=== PATIENT | male | born 1950 | race Caucasian/White ===

== ENCOUNTER 2019-10-08 11:56 | Outpatient (CLI) | payer MEDICARE, SELFPAY ==
--- NOTE | ~2019-10-08 | XR_ITS ---
EXAMINATION: XR wrist RT min 3V DATE: 10/08/2019 12:21 INDICATION: Right wrist osteoarthritis. TECHNIQUE: 3 views of right wrist were obtained. COMPARISON: None. FINDINGS: Bone alignment is normal. No fracture. There is dorsal tilt of lunate, consistent with dors al intercalated segmental instability. There is severe osteoarthritis of radioscaphoid joint and at l east mild osteoarthritis of lunate-capitate joint and lunate-hamate joint. There is mild osteoarthrit is of first carpometacarpal joint. IMPRESSION: 1. Polyarticular osteoarthritis. 2. Dorsal intercalated segmental instability (DISI). Reviewed, dictated and finalized at location A.
== END 2019-10-08 11:57 | disposition home or self-care (01) ==
PROVIDERS: PCP Internal Medicine; Visit Provider Plastic Surgery
DX: M19.031 Primary osteoarthritis, right wrist (principal)
CPT/HCPCS: 73110

== ENCOUNTER → 2021-02-18 11:56 | Outpatient (CLI) | payer MEDICARE, SELFPAY ==
--- NOTE | ~2021-02-18 | US_ITS ---
EXAMINATION: US thyroid DATE: 02/18/2021 12:14 INDICATION: Other specified abnormal findings of blood chemistry. TECHNIQUE: Multiple ultrasound images of the thyroid were obtained. COMPARISON: None. FINDINGS: The right thyroid lobe measures 4.3 x 1.0 x 1.4 cm. The left thyroid lobe measures 3.1 x 1.3 x 1.1 c m. There is normal echotexture and echogenicity throughout the thyroid gland. No discrete nodules id entified. Normal vascular flow is present. IMPRESSION: 1. Normal thyroid. Reviewed, dictated and finalized at location A. IMPRESSION: 1. Normal thyroid.
== END ==
PROVIDERS: PCP Internal Medicine; Visit Provider Internal Medicine
DX: R79.89 Other specified abnormal findings of blood chemistry (principal)
CPT/HCPCS: 76536

== ENCOUNTER 2024-11-28 12:00 | Emergency (ER) | payer MEDICARE, SELFPAY ==
--- NOTE | 2024-11-28 12:01 | ED.URI ---
HPI - URI/Sore Throat General Chief Complaint: Headache Stated Complaint: sinus pain/pressure Time Seen by Provider: 11/28/24 12:01 Source: patient Mode of arrival: ambulatory Limitations: no limitations History of Present Illness HPI Narrative: Rufino is a 74-year-old male patient presenting to the clinic today with complaints of sinus headache x2 days. reports started having some confusion this morning around 10am. He keeps asking the same question multiple times, and is unsteady of his feet. Not acting like himself. Has taken sinus cold medication for his symptoms and some extra strength tylenol. Temp of 37.8C in the clinic. Pain aching- 7/10 currently. Denies any known fever, chills, or body aches. Feels as though he is unsteady of his feet with walking- room is not spinning. No falls. says he is never sick. Related Data Home Medications ?Medication ?Instructions ?Recorded ?Confirmed ?Last Taken ?Type omega 6-tqb-gfw-fish oil 60 mg-90 1 cap PO DAILY 02/20/24 02/20/24 Unknown History mg-500 mg capsule (Fish Oil) Allergies Allergy/AdvReac Type Severity Reaction Status Date / Time No Known Allergies Allergy Verified 11/28/24 12:50 Review of Systems Review of Systems: Pertinent positives per HPI. Patient denies any fever, chills, rash, visual changes, dizziness, cough, shortness of breath, chest pain, palpitations, nausea, vomiting, diarrhea, constipation, abdominal pain, or any urinary issues. [facility] History Surgical History History of shoulder surgery Social History Social History Smoking status: Never smoker Alcohol intake: current Substance use: never Do You Feel Safe in your Home?: Yes Lack of Transportation: No Lack of Food: Never True Current Housing: I Have Housing Concerned About Future Housing: No Difficulty Paying Gas/Electric Bills: No Difficulty Paying for Meds: No Currently Unemployed: No Comments At the time of my signature, I reviewed and agree with the nursing past medical, surgical, social, and family history. There is no relevant family history pertinent to the patient complaint. Exam Narrative: General: Well-developed, well nourished, in no apparent distress Head: Normocephalic, atraumatic Eyes: Pupils equally round and reactive to light bilaterally, EOM intact, sclera and conjunctive clear, no discharge, lids normal Ears: TMs intact and clear, ear canals clear, no drainage, grossly hearing normal. Nose: Nares patent, no discharge, no inflammation, no sinus tenderness. Mouth: Oropharynx without lesions or masses, good dentition, MM dry. Tongue midline, even rise and fall of uvula Neck: Supple, trachea midline, no enlargement of anterior or posterior cervical nodes, no thyroid masses or goiter palpable. Cardio: Regular rate and rhythm, s1 and s2 normal, no murmur appreciated. Resp: Clear to auscultation bilaterally anteriorly and posteriorly, no rhonchi, rales, wheezing or rubs Musculoskeletal: No deformity, non-tender to palpation, grossly normal range of motion, muscle strength strong and equal, peripheral pulse strong, no edema, no cyanosis, unsteady gait with walking Neuro: Alert and oriented x2 with normal speech, no focal deficits, cranial nerves I through XII intact, muscle strength 5 out of 5, sensation intact bilaterally Course Course Emergency Course: Portions of this record may have been created with voice recognition software. Level of Care: Express Care Visit Vital Signs Vital signs: Vital Signs Temperature 37.8 C H 11/28/24 12:06 Pulse Rate 81 11/28/24 12:06 Respiratory Rate 24 H 11/28/24 12:06 Blood Pressure 146/87 H 11/28/24 12:06 Pulse Oximetry 96 11/28/24 12:06 Oxygen Delivery Room Air 11/28/24 12:06 Temperature 37.8 C H 11/28/24 12:06 Pulse Rate 81 11/28/24 12:06 Respiratory Rate 24 H 11/28/24 12:06 Blood Pressure 146/87 H 11/28/24 12:06 Pulse Oximetry 96 11/28/24 12:06 Oxygen Delivery Room Air 11/28/24 12:06 Vital signs reviewed Transfer Transfered to: Tra Transportation: Other (Private car) Transfer rationale: headache, unsteady gait, confusion Accepting physician: Dr. Haines Transfer comments: private car MDM - URI/Sore Throat MDM Narrative Medical decision making narrative: At the time of visit patient is resting comfortably on the exam table. Patient appears to be nontoxic. Patient had sudden onset frontal headache 2 days ago with developing confusion and unsteady gait today. Patient reports that he is normally outside but has not really been outside this week in the heat. Patient is alert and oriented x2 at this time. at bedside. States that this is not normal the patient-unsteady gait, confusion, and even having headache. States he has never sick. Urinalysis and COVID testing was ordered. Labs: COVID testing is negative in the clinic today. Urinalysis shows no sign of infection but does have positive blood, protein, and ketones. Plan: Recommend transfer to the ER for further evaluation as patient is experience headache, confusion, and unsteady gait. This may likely be due to dehydration as the patient does have blood protein and ketones in his urine and his mucous membranes appear to be dry. Patient is alert and oriented x2 and has an unsteady gait. Rates frontal headache 7/10 currently. Neuro exam otherwise is normal. Other differentials include CVA, TIA, brain mass, tension headache, migraine, or sinusitis. Patient and agrees to transfer to the emergency room. They would like to go to [place] [facility]. Report called to Dr. Haines at [place] [facility] and he accepts patient for transfer. Patient to be transferred via private car. Differential Diagnosis Differential diagnosis: Likely sinusitis, viral infection and other (COVID, CVA, TIA, brain mass, tension headache, migraine headache) Lab Data Labs: Lab Results 11/28/24 Range/Units 12:10 POC Urine Color Yellow POC Urine Clarity Clear POC Urine pH 6.0 POC Ur Specif Deshler 1.030 POC Urine Protein 1+ (Negative) POC Ur Glucose (UA) Negative (Negative) POC Urine Ketones 2+ (Negative) POC Urine Blood 1+ (Negative) POC Urine Nitrite Negative (Negative) POC Urine Bilirubin 1+ (Negative) POC Urine Urobilinogen 0.2 POC U Leukocyte Esteras Negative (Negative) POC SARS CoV-2 Ag Negative (Negative) Discharge Plan Discharge Clinical Impression: Acute confusion, Unsteady gait Headache Qualifiers: Headache type: unspecified Headache chronicity pattern: acute headache Intractability: not intractable Qualified Code(s): R51.9 - Headache, unspecified Patient Disposition: Acute Care Hospital Condition: Stable Patient Language: Danish Prescriptions: No Action omega 1-syl-fmu-fish oil [Fish Oil] 60-90-500 mg capsule 1 cap PO DAILY Follow-up/Referrals: Anselmo,MD Kim [Primary Care Provider] - Time of Disposition: 12:45 Quality NIHSS Nursing Documentation ED NIHSS nursing documentation: reviewed/agree
--- OUTSIDE RECORDS SUMMARY | 2024-11-28 12:03 | XMS_ITS ---
Author Organization [facility] Address [address] [place], [place] [id number] Care Team Providers Care Signal Person Name Role Phone LA NENA HOFF Unavailable [phone] Kim Briones Unavailable Unavailable REASON FOR VISIT Patient presents for at-risk foot care . The patient has painful toenails that cause difficulty with ambulation and shoegear. The onset is gradual Encounters Encounter Location Date Provider Diagnosis [facility] [place] [address] [place], [place] [id number] 06/25/2024 LA NENA SAENZ Tinea unguium B35.1 ; Pain in right toe(s) M79.674 ; Pain in left toe(s) M79.675 and Atherosclerosis of [place] arteries of extremities with intermittent claudication, bilateral legs I70.213 Assessments Encounter Date Diagnosis (ICD Code) Assessment Notes Treatment Notes Treatment Clinical Notes Section Notes 06/25/2024 Tinea unguium (ICD-10 - B35.1) FUNGAL TOENAILS: Discussed various treatment options for fungal toenails including debridement, topical antifungals, oral antifungals, toenail avulsion, or toenail matrixectomy. NAIL DEBRIDEMENT: Nails 1-5 Bilateral were debrided extensively with nail nippers and emery board, reducing length and girth to pink healthy tissue with any subungual debris and necrotic tissue removed 06/25/2024 Pain in right toe(s) (ICD-10 - M79.674) 06/25/2024 Pain in left toe(s) (ICD-10 - M79.675) 06/25/2024 Atherosclerosis of [place] arteries of extremities with intermittent claudication, bilateral legs (ICD-10 - I70.213) Plan Of Treatment Treatment Notes Assessment Notes Tinea unguium FUNGAL TOENAILS: Discussed various treatment options for fungal toenails including debridement, topical antifungals, oral antifungals, toenail avulsion, or toenail matrixectomy. NAIL DEBRIDEMENT: Nails 1-5 Bilateral were debrided extensively with nail nippers and emery board, reducing length and girth to pink healthy tissue with any subungual debris and necrotic tissue removed Next Appt Details Follow Up: 10-12 Weeks, Reas on: At Risk Foot care, sooner if problems arise Provider Name:FLORENTINO CORTES, 12/05/2024 03:50:00 PM, [address], [address], [id number], Progress Notes * Rufino WILSONDOB:1950 (74 yo M)Acc No.[id number]:06/25/2024 Patient: Rufino AMBROSE Provider: Len Saenz DPM :1950 A ge:74 Y S ex:Male Date:06/25/2024 Address:[address] [place], [place] [id number] Subjective: * Chief Complaints: * 1 . Patient presents for at-risk foot care . The patient has painful toenails that cause difficulty with ambulation and shoegear. The onset is gradual. * HPI: H PI: General care P atient presents to the office for at risk foot care. Patient states that their nails are thickened, elongated and painful. Patient states that it is aggravated by shoe gear. Onset is gradual. Patient denies being diabetic., Patient denies taking blood thinners., Date last seen by Dr. Briones was 12/2023., Initials mca. sample. * ROS: G eneral / Constitutional: Patient denies c hills, fever, weight loss. ? M usculoskeletal: Patient denies w eakness, broken foot bone. P atient complains of h ammertoes. P eripheral Vascular: Patient denies p ain / cramping in legs after exertion, ulceration of feet. S kin: Patient complains of f ungal nails, nail changes. ? N eurologic: Patient denies b alance difficulty, confusion, difficulty speaking, dizziness. * Medical History: * Medications: N one Objective: * Vitals: * Examination: C onstitutional: Constitutional T he patient is awake, alert, well developed, well groomed and well nourished. D ermatologic: Skin findings: S kin is thin, atrophic and lacking pedal hair. Nail pathology: N ails 1, 2, 3, 4, and 5 bilateral are elongated, thick, discolored, and dystrophic with subungual debris. They are painful to palpation. ? V ascular: Dorsalis pedis pulse: 1 /4 b ilateral. Posterior tibial pulse: 0 /4 b ilateral. Capillary refill: g reater than 3 seconds. Edema: N o edema, bilateral. N eurologic: Gross sensation G ross sensation is intact to light touch.? M usculoskeletal: Muscle Strength M uscle strength is 5/5 in regards to dorsiflexion, plantarflexion, inversion, and eversion in bilateral lower extremities. ? Assessment: * Assessment: 1. T inea unguium - B35.1 (Primary) 2 . P ain in right toe(s) - M79.674? 3. P ain in left toe(s) - M79.675 4 . A therosclerosis of [place] arteries of extremities with intermittent claudication, bilateral legs - I70.213 Plan: * Treatment: * Follow Up: 1 0-12 Weeks (Reason: At Risk Foot care, sooner if problems arise) * Billing Information: * Visit Code: 50015 Office Visit, Est Pt., Level 3. * Procedure Codes: * Electronic signature of LA NENA SAENZ DPM on 11/28/2024 at 12:03 PM CDT Sign off status: Pending * Provider: Len Saenz DPM Date: 0 06/25/2024 Generated for Mayo mandel/Candelaria/Adeel on: 0 11/28/2024 12:03 PM CDT History and Physical Notes * HPI (History of Present Illness) Category Sub-Category Detail Notes Category Not es HPI General care Patient presents to the office for at risk foot care. Patient states that their nails are thickened, elongated and painful. Patient states that it is aggravated by shoe gear. Onset is gradual. Patient denies being diabetic., Patient denies taking blood thinners., Date last seen by Dr. Briones was 12/2023., Initials mca sample Examination Category Sub-Category Detail Notes Category Not es Dermatologic Skin findings: Skin is thin, at rophic and lacking pedal hair Nail pathology: Nails 1, 2, 3, 4, an d 5 bilateral are elongated, thick, discolored, and dystrophic with subungual debris. They are painful to palpation Neurologic Gross sensation Gross sensation is intact to light touch Vascular Dorsalis pedis pulse: 1/4 bilateral Edema: No edema, bilateral Capillary refill: greater than 3 secon ds Posterior tibial pulse: 0/4 bilateral Musculoskeletal Muscle Strength Muscle strength is 5/5 in regards to dorsiflexion, plantarflexion, inversion, and eversion in bilateral lower extremities Constitutional Constitutional The patient is a wake, alert, well developed, well groomed and well nourished
--- OUTSIDE RECORDS SUMMARY | 2024-11-28 12:03 | XMS_ITS | Clinical Summary ---
Author Organization [facility] Address [address] [place] [address] Care Team Providers Care Custom Framing Specialist Name Role Phone Unavailable Primary Care Provider Unavailabl e Source Comments [facility],non-owned Affiliates and Associated Physician Practices is amultiple site organization consisting of ambulatory clinics and hospital sitesin [place], [place], [place] and [place]. This disclosure is being madepursuant to the Care Everywhere program and may not contain all information available regarding this patient. Last updated 18.[facility] [employer] Allergies No known active allergies Social History Tobacco Use Types Packs/Day Years Used Date Smoking Tobacco: Never Assessed Sex and Gender Information Value Date Recorded Sex Assigned at Not on file Legal Sex Male 9:45 AM CDT Gender Identity Not on file Sexual Orientation Not on file Plan of Treatment Health Maintenance Due Date Last Done Comments COLOGUARD (AGES 45-75) - COL ON CA SCREENING 1950 COLON MONITORING 1950 COLONOSCOPY - COLON CA SCREENING 1950 CT COLONOGRAPHY - COLON CA SCREENING 1950 Colorectal Cancer Screening 1950 FIT - COLON CA SCREENING 1950 FLEX SIG - COLON CA SCREENING 1950 LIPID TESTING 1950 HEPATITIS C SCREENING 04/04/1970 DTAP/TDAP/TD VACCINES (1 - Tdap) 1971 PNEUMOCOCCAL VACCINE 50+ (1 of 1 - PCV) 2002 ZOSTER VACCINE (1 of 2) 2002 COVID-19 VACCINE (1 - 2023-2 5 season) 2024 DEPRESSION SCREENING 05/09/2024 INFLUENZA VACCINE (#1) 2025 , 03/08/2017 Respiratory Syncytial Virus (RSV) Vaccine Pt: or over 60 yrs (1 - 1-dose 75+ series) 2027 HEPATITIS B VACCINE Aged Out No longe r eligible based on patient's age to complete this topic HIB VACCINE Aged Out No longer eligi ble based on patient's age to complete this topic HPV VACCINE Aged Out No longer eligi ble based on patient's age to complete this topic MENINGOCOCCAL (Group B) VACCINE SHARED DECISION-MAKING Aged Out No longer eligible based on patient's age to complete this topic MENINGOCOCCAL GROUPS A/C/Y/W VACCINE Aged Out No longer eligible b ased on patient's age to complete this topic Insurance MANAGED MEDICARE ADV
--- OUTSIDE RECORDS SUMMARY | 2024-11-28 12:03 | XMS_ITS ---
Author Organization [facility] Address [address] [place], [place] [id number] Care Team Providers Care Cogeneration Technician Name Role Phone LA NENA ANDERSON Unavailable [phone] Kim Briones Unavailable Unavailable REASON FOR VISIT *General care Encounters Encounter Location Date Provider Diagnosis [facility] [place] [address] [place], [place] [id number] 11/26/2024 LA NENA ANDERSON Plan Of Treatment Next Appt Details Provider Name:FLORENTINO CORTSE, 12/05/2024 03:50:00 PM, [address], [place], [place], [phone], Progress Notes * Rufino WILSONDOB:1950 (74 yo M)Acc No.[id number]:11/26/2024 Patient: Rufino AMBROSE Provider: Len Anderson DPM :1950 A ge:74 Y S ex:Male Date:11/26/2024 Address:[address] [place], [id number] Subjective: * Chief Complaints: * 1 . *General care. * Medical History: Objective: * Vitals: Assessment: Plan: * Treatment: * Billing Information: * Visit Code: * Procedure Codes: * Electronic signature of LA NENA ANDERSON DPM on 11/28/2024 at 12:03 PM CDT Sign off status: Pending * Provider: Len Anderson DPM Date: 0 11/26/2024 Generated for Mayo Chan on: 11/28/2024 12:03 PM CDT
--- OUTSIDE RECORDS SUMMARY | 2024-11-28 12:03 | XMS_ITS | Patient Health Record ---
Author Organization [facility] Address [address] [place], [place] [id number] Care Team Providers Care Receiving Checker Name Role Phone LA NENA ANDERSON Unavailable [phone] Luískikaanival Christianmynoranalia Unavailable Unavailable Allergies No Known Allergies Reason For Referral No Information Immunizations Vaccine Route Administration Date Status Comme nts Influenza, high dose seasonal Unknown 08/15/2023 Refuse d Pneumococcal conjugate PCV 13 Unknown 08/15/2023 Refuse d Social History Tobacco Use: Social History Observation Description Date Details (start date - stop date) Never Smoker NA - NA Tobacco Control (Standard) Question Answer Notes Tobacco use: Nonsmoker Vital Signs Height-cm 182.88 cm 09/24/2024 Weight-kg 79.38 kg 09/24/2024 Height 72 in 09/24/2024 Weight 175 lbs 09/24/2024 BMI 23.73 kg/m2 09/24/2024 Encounters Encounter Location Date Provider Diagnosis [facility] [place] [address] [place], [place] [id number] 06/25/2024 LA NENA SNOOK Tinea unguium B35.1 ; Pain in right toe(s) M79.674 ; Pain in left toe(s) M79.675 and Atherosclerosis of k[place] arteries of extremities with intermittent claudication, bilateral legs I70.213 [facility] [place] [address] [place], [place] [id number] 02/13/2024 LA NENA SNOOK Tinea unguium B35.1 ; Pain in right toe(s) M79.674 ; Pain in left toe(s) M79.675 and Atherosclerosis of koi arteries of extremities with intermittent claudication, bilateral legs I70.213 [facility] [place] [address] [place], [place] [id number] 09/24/2024 LA NENA ANDERSON Tinea unguium B35.1 ; Pain in right toe(s) M79.674 ; Pain in left toe(s) M79.675 and Atherosclerosis of koi arteries of extremities with intermittent claudication, bilateral legs I70.213 Assessments Encounter Date Diagnosis (ICD Code) Assessment Notes Treatment Notes Treatment Clinical Notes Section Notes 02/13/2024 Tinea unguium (ICD-10 - B35.1) FUNGAL TOENAILS: Discussed various treatment options for fungal toenails including debridement, topical antifungals, oral antifungals, toenail avulsion, or toenail matrixectomy. NAIL DEBRIDEMENT: Nails 1-5 Bilateral were debrided extensively with nail nippers and emery board, reducing length and girth to pink healthy tissue with any subungual debris and necrotic tissue removed 02/13/2024 Pain in right toe(s) (ICD-10 - M79.674) 06/25/2024 Tinea unguium (ICD-10 - B35.1) FUNGAL [...] Pain in right toe(s) (ICD-10 - M79.674) 09/24/2024 Tinea unguium (ICD-10 - B35.1) FUNGAL TOENAILS: Discussed various treatment options for fungal toenails including debridement, topical antifungals, oral antifungals, toenail avulsion, or toenail matrixectomy. NAIL DEBRIDEMENT: Nails 1-5 Bilateral were debrided extensively with nail nippers and emery board, reducing length and girth to pink healthy tissue with any subungual debris and necrotic tissue removed 09/24/2024 Pain in right toe(s) (ICD-10 - M79.674) 09/24/2024 Pain in left toe(s) (ICD-10 - M79.675) 06/25/2024 Pain in left toe(s) (ICD-10 - M79.675) 02/13/2024 Pain in left toe(s) (ICD-10 - M79.675) 02/13/2024 Atherosclerosis of koi arteries of extremities with intermittent claudication, bilateral legs (ICD-10 - I70.213) 06/25/2024 Atherosclerosis of koi arteries of extremities with intermittent claudication, bilateral legs (ICD-10 - I70.213) 09/24/2024 Atherosclerosis of koi arteries of extremities with intermittent claudication, bilateral legs (ICD-10 - I70.213) Plan Of Treatment Next Appt Details Provider Name:FLORENTINO CORTES, 12/05/2024 03:50:00 PM, [address], [facility] [place], [place], [id number], Insurance Providers Payer Name Payer Address Payer Phone Subscriber Number Group Number Insured Name Patient Relationship to Insured Coverage Start Date Coverage End Date [employer] [address] [place] [phone] [id number] Rufino Wilson Self - patient is the insured Medical (General) History Surgical History Surgery Date(Month/Year) Shoulder repair
--- OUTSIDE RECORDS SUMMARY | 2024-11-28 12:03 | XMS_ITS | Data Portability ---
Author Organization [place] [facility], Main Office Address [address] [place] [address] Assessment Encounter Date Assessment Date Assessment LastModified by Organization Details LastModified Time 02/02/2023 02/02/2023 72-year-old male presents for follow-up of his right hand. He had a carpal tunnel release with Dr. Conklin on 12/01/2022. He reports he has no problems, feels great, 0/10 pain. Incision is clean dry intact, well-healed. He has no tenderness around surgical site. He has improvement in his numbness and tingling, sensation intact to light touch throughout, 2+ radial pulse. He does have bilateral Dupuytren cords, although no contractures. At this point he is doing well. He may be activities as tolerated. Follow up p.r.n.. We discussed that if his Dupuytren's starts to bother him, we would refer him to a hand specialist. 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 I believe this is likely the precise etiology of his proximal lateral calf pain has pain lateral compartment will often radiate down the lateral calf several inches. I have discussed options with. We discussed nonsteroidal anti-inflammatory medication cortisone injection activity modification. He would like to try meloxicam again. Possible side effects discussed. Have prescribed 15 mg daily and we will check blood work after 3 months and then after every 6 months thereafter. He declines cortisone shot. He is not going to give a pickle ball is he enjoys so much. If his symptoms worsen he will consider coming in to try cortisone shot. I am happy to see him back as needed. 30 minutes were spent total care this patient more than half the time spent in [id number] care. Not available 02/20/2023 16:14:41 03/19/2024 03/19/2024 01/11/2024: PSA 1.69 BUN 24H MCV 97.1 [email or web address] Not available 03/19/2024 15:39:45 Plan of Treatment Reminders Order Date Submit Date Provider Last Modified By Organization Details Last Modified Time Details Appointments Any 15 2024 01:00P Nelli melgar MD Not available Not available Not available Lab lipid panel, serum 2023 024 Hubei Kento Electronic [facility], [address], [address], [place], [address], 07/17/2024 15:10:53 CMP, serum or plasma 2023 024 Hubei Kento Electronic [facility], [address], [place], [address], 07/17/2024 15:11:04 CBC w/ auto diff 2023 024 Hubei Kento Electronic [facility], [address], [place], [address], 07/17/2024 15:11:13 TSH, serum or plasma 2023 024 Hubei Kento Electronic [facility], [address], [place], [address], 07/17/2024 15:11:23 PSA, total + free, serum or plasma 2023 024 Hubei Kento Electronic [facility], [address], [place], [address], 01/23/2024 14:47:23 lipid panel, serum 2023 024 [email or web address] [facility], [address], [place], [address], 01/11/2024 19:57:00 CMP, serum or plasma 2023 024 [place] [facility], [address], [address], [place], [address], 01/11/2024 19:57:06 CBC w/ auto diff 2023 024 [place] [facility], [address], [address], [place], [address], 01/11/2024 18:42:48 TSH, serum or plasma 2023 024 [place] [facility], [address], [address], [place], [address], 01/11/2024 20:41:54 CBC w/ auto diff - pt should have done in approx 3mo 2022 023 Not available 02/10/2023 12:57:39 CMP, serum or plasma 2022 023 [email or web address] Not available 05/18/2023 14:49:50 PSA, total + free, serum or plasma 2022 023 [email or web address] [facility], [address], [address], [place], [address], 05/16/2023 17:48:14 lipid panel, serum 2022 023 [email or web address], [address], [address], [place], [address], 05/16/2023 17:48:22 CMP, serum or plasma 2022 023 [email or web address], [address], [address], [place], [address], 05/16/2023 17:48:31 CBC w/ auto diff 2022 023 [email or web address] [facility], [address], [address], [place], [address], 05/16/2023 17:49:00 TSH, serum or plasma 2022 023 [email or web address] [facility], [address], [address], [place], [address], 05/16/2023 17:49:07 Referral orthopedi c surgeon referral 2023 024 [email or web address] Teofilo Brice PA, [address], [place], [address], 03/19/2024 16:41:03 cardiolog ist referral 2023 024 [email or web address] [place], [address], [address], [place], [address], 03/19/2024 16:41:03 orthopedi c surgeon referral 2023 024 2 Franc Fox MD, [address], [place], [address], 07/17/2024 08:16:54 cardiolog ist referral 2023 024 [email or web address] 2 [place], [address], [address], [place], [address], 08/06/2024 09:03:15 orthopedi c surgeon referral 2022 023 MARYCHUY Fox MD, [address], [place], [address], 02/03/2023 14:31:51 cardiolog ist referral 2022 023 [place], [address], [address], [place], [address], 07/21/2023 09:19:57 Procedures None recorded. Surgeries None recorded. Imaging XR, knee 2022 023 [email or web address] [facility], [address] [facility] [address], [place], [address], 02/21/2023 11:26:34 Medication Orders meloxicam 15 mg tablet 2022 023 [email or web address] [id number], [address], [place], [place], [id number], 02/10/2023 12:57:39 Patient TargetsNo targets recorded. Patient Instructions Encounter Date Encounter Id Patient Instructions Last Modified By Organization Details Last Modified Time 01/05/2023 [id number] dementia rating scale-2* [email or web address] 2 Not available 01/05/2023 16:29:20 depression screening* ermiasa 2 Not available 01/05/2023 16:29:20 alcohol misuse* jamilinwala 2 Not available 01/05/2023 16:29:20 Timed Up and Go test (TUG)* ermiasa 2 Not available 01/05/2023 16:29:20 multi-dimensiona l health assessment questionnaire* [email or web address] 2 Not available 01/05/2023 16:29:20 advance directiv es: [facility] Not available 01/05/2023 16:29:20 Personalized [facility] lt Plan and Screening Recommendations Advance Directives - Do you have one? Yes Advance Directives - Do we have your advance directive on file in your health record? No, please bring in a copy at your earliest convenience Primary Prevention/Interven tion (prevents or decreases the chance of common diseases from occurring) Smoking Risk: Non Smoker Alcohol Misuse Screening: Negative Weight: Appropriate try to lose 15% of your body weight Physical activity: Appropriate physical activity Nutrition: Average Refer to attached handout Heart-Healthy Diet: After Your Visit Fall Risk (screened today): Low Refer to attached handout Preventing Falls: After your Visit Vaccines Pneumococcal: No further needed Influenza: Your next one in the fall of this year Chronic Disease Risks Stroke: Low Risk I have no recommendations Heart Attack: Low risk I have no recommendations Clogging of the Arteries: Low risk I have no recommendations Diabetes: Low Risk I have no recommendations Secondary Prevention/Interven tion (detects treatable diseases before they may cause symptoms, disability, or ) Prostate Cancer Screening: Your next PSA in:01/07 No digital rectal exam screening necessary Colon Cancer Screening: Colonoscopy Recommended Date Screening Last Performed: Eye Disease Screening: Your next exam in: annually Dementia Risk: Low I have no recommendations Depression Screening: Negative Not available 01/05/2023 14:21:32 Reason for Referral Orthopedic Surgeon Referral for Pain of right knee joint Referring Physician: Yanni Swain Medicine, Encounter Date: 01/05/2023 Hand Lacer Referral for Sc reening for cardiovascular system disease Referring Physician: Yanni Swain, Encounter Date: 01/05/2023 Orthopedic Surgeon Referral for Pain of right knee joint Referring Physician: Yanni Swain Medicine, Encounter Date: 01/11/2024 Hand Lacer Referral for Sc reening for cardiovascular system disease Referring Physician: Yanni Swain, Encounter Date: 01/11/2024 Orthopedic Surgeon Referral for Pain of right knee joint Referring Physician: Yanni Swain Medicine, Encounter Date: 03/19/2024 Hand Lacer Referral for Sc reening for cardiovascular system disease Referring Physician: Yanni Swain Medicine, Encounter Date: 03/19/2024 Results Created Date Observation Date Name Description Value Unit Range Abnormal Flag Note LastModifiedBy Organization Detail LastModifiedTime 01/11/20 24 01/11/2024 CBC/C OMPLE TE BLD COUNT W/DIF F white blood cells 6.2 x10'3 /uL 4.2-10 .8 Not Available [facility] (Lab) [address] [place], [address], 01/11/2024 18:42:48 01/11/20 24 01/11/2024 CBC/C OMPLE TE BLD COUNT W/DIF F red blood cells 4.53 x10'6 /uL 4.10-5 .80 Not Available [facility] (Lab) [address] [place], [address], 01/11/2024 18:42:48 01/11/20 24 01/11/2024 CBC/C OMPLE TE BLD COUNT W/DIF F hemoglobin 14.8 g/dL 13.2-1 7.0 Not Available [facility] (Lab) [address] [place], [address], 01/11/2024 18:42:48 01/11/20 24 01/11/2024 CBC/C OMPLE TE BLD COUNT W/DIF F hematocrit 44.0 % 39.3-5 0.0 Not Available [facility] (Lab) [address] [place], [address], 01/11/2024 18:42:48 01/11/20 24 01/11/2024 CBC/C OMPLE TE BLD COUNT W/DIF F mean red cell volume 97.1 fL 80.0-9 7.0 high Not Available [facility] (Lab) [address] [place], [address], 01/11/2024 18:42:48 01/11/2001/11/2024 CBC/C OMPLE TE BLD COUNT W/DIF F mean red cell hemoglobin 32.7 pg 27.0-3 3.0 Not Available [facility] (Lab) [address] [place], [address], 01/11/2024 18:42:48 01/11/20 24 01/11/2024 CBC/C OMPLE TE BLD COUNT W/DIF F mean RBC HGB concentratio n 33.6 g/dL 31.0-3 6.0 Not Available [facility] (Lab) [address] [place], [address], 01/11/2024 18:42:48 01/11/2001/11/2024 CBC/C OMPLE TE BLD COUNT W/DIF F red cell distribution width 13.0 % 11.8-1 5.5 Not Available [facility] (Lab) [address] [place], [address], 01/11/2024 18:42:48 01/11/2001/11/2024 CBC/C OMPLE TE BLD COUNT W/DIF F platelets 262 x10'3 /uL 150-40 0 Not Available [facility] (Lab) [address] [place], [address], 01/11/2024 18:42:48 01/11/20 24 01/11/2024 CBC/C OMPLE TE BLD COUNT W/DIF F mean platelet volume 11.4 fL 9.0-12 .4 Not Available [facility] (Lab) [address] [place], [address], 01/11/2024 18:42:48 01/11/2001/11/2024 CBC/C OMPLE TE BLD COUNT W/DIF F neutrophils 71.8 % 39.0-7 2.0 Not Available [facility] (Lab) [address] [place], [address], 01/11/2024 18:42:48 01/11/2001/11/2024 CBC/C OMPLE TE BLD COUNT W/DIF F lymphocytes 19.9 % 16.0-4 7.0 Not Available [facility] (Lab) [address] [place], [address], 01/11/2024 18:42:48 01/11/20 24 01/11/2024 CBC/C OMPLE TE BLD COUNT W/DIF F monocytes 6.8 % 5.0-12 .0 Not Available [facility] (Lab) [address] [place], [address], 01/11/2024 18:42:48 01/11/20 24 01/11/2024 CBC/C OMPLE TE BLD COUNT W/DIF F eosinophils 0.6 % 1.0-7. 0 low Not Available [facility] (Lab) [address] [place], [address], 01/11/2024 18:42:48 01/11/20 24 01/11/2024 CBC/C OMPLE TE BLD COUNT W/DIF F basophils 0.6 % 0.0-2. 0 Not Available [facility] (Lab) [address] [place], [address], 01/11/2024 18:42:48 01/11/20 24 01/11/2024 CBC/C OMPLE TE BLD COUNT W/DIF F immature granulocytes 0.3 % 0.00-0 .50 Not Available [facility] (Lab) [address] [place], [address], 01/11/2024 18:42:48 01/11/20 24 01/11/2024 CBC/C OMPLE TE BLD COUNT W/DIF F neutrophils, absolute count 4.44 x10'3 /uL 1.5-8. 0 Not Available [facility] (Lab) [address] [place], [address], 01/11/2024 18:42:48 01/11/20 24 01/11/2024 CBC/C OMPLE TE BLD COUNT W/DIF F lymphocytes, absolute count 1.23 x10'3 /uL 1.07-3 .43 Not Available [facility] (Lab) [address] [place], [address], 01/11/2024 18:42:48 01/11/20 24 01/11/2024 CBC/C OMPLE TE BLD COUNT W/DIF F monocytes, absolute count 0.42 x10'3 /uL 0.29-0 .99 Not Available [facility] (Lab) [address] [place], [address], 01/11/2024 18:42:48 01/11/20 24 01/11/2024 CBC/C OMPLE TE BLD COUNT W/DIF F eosinophils, absolute count 0.04 x10'3 /uL 0.02-0 .53 Not Available [facility] (Lab) [address] [place], [address], 01/11/2024 18:42:48 01/11/20 24 01/11/2024 CBC/C OMPLE TE BLD COUNT W/DIF F basophils, absolute count 0.04 x10'3 /uL 0.01-0 .08 Not Available [facility] (Lab) [address] [place], [address], 01/11/2024 18:42:48 01/11/20 24 01/11/2024 CBC/C OMPLE TE BLD COUNT W/DIF F immature granulocytes ,absolute 0.02 x10'3 /uL 0.00-0 .05 Not Available [facility] (Lab) [address] [place], [address], 01/11/2024 18:42:48 01/11/20 24 01/11/2024 CBC/C OMPLE TE BLD COUNT W/DIF F nucleated red blood cells 0.0 % -0 Not Available [facility] (Lab) [address] [place], [address], 01/11/2024 18:42:48 01/11/20 24 01/11/2024 CBC/C OMPLE TE BLD COUNT W/DIF F NRBC# 0.00 x10'3 /uL Not Available [facility] (Lab) [address] [place], [address], 01/11/2024 18:42:48 01/11/20 24 01/11/2024 LIPID PANEL cholesterol 190 mg/dL 140-19 9 NIH BRIA NSUS RECOM MENDA TION FOR GEOVANY STERO L: ADULT CHILD LOW RISK: <200 <170 BORDE RLINE : <200- 239 ----- HIGH RISK: >240 >200 Not Available [facility] (Lab) [address] [place], [address], 01/11/2024 19:57:00 01/11/20 24 01/11/2024 LIPID PANEL triglyceride s 49 mg/dL 0-150 NIH BRIA NSUS REPOR T RECOM MENDA TION FOR TRIGL YCERI CURRY: ADULT CHILD LOW RISK: <150 ----- BODER LINE: 150-1 99 ----- HIGH RISK: >200 ----- Not Available [facility] (Lab) [address] [place], [address], 01/11/2024 19:57:00 01/11/2001/11/2024 LIPID PANEL HDL cholesterol 91 mg/dL 40- Not Available [facility] (Lab) [address] [place], [address], 01/11/2024 19:57:00 01/11/2001/11/2024 LIPID PANEL LDL cholesterol, calculated 89 mg/dL 0-130 NIH BRIA NSUS REPOR T RECOM MENDA TIONS FOR LDL: ADULT CHILD LOW RISK <130 <110 (OPTI MAL LDL) <100 ----- BORDE RLINE : 130-1 59 ----- HIGH RISK: >160 >130 A TRIGL YCERI DE RESUL T >400 INVAL IDATE S THE CALCU LATIO N FOR LDL FRACT IONAT ION - THE LDL RESUL T WILL NOT BE REPOR ORQUIDEA. Not Available [facility] (Lab) [address] [place], [address], 01/11/2024 19:57:00 01/11/20 24 01/11/2024 COMPR EHENS GAEL METAB OLIC PANEL sodium 138 mmol/ L 137-14 5 Not Available [facility] (Lab) [address] [place], [address], 01/11/2024 19:57:06 01/11/20 24 01/11/2024 COMPR EHENS GAEL METAB OLIC PANEL potassium 4.3 mmol/ L 3.5-5. 1 Not Available [facility] (Lab) [address] [place], [address], 01/11/2024 19:57:06 01/11/20 24 01/11/2024 COMPR EHENS GAEL METAB OLIC PANEL chloride 105 mmol/ L 98-107 Not Available [facility] (Lab) [address] [place], [address], 01/11/2024 19:57:06 01/11/20 24 01/11/2024 COMPR EHENS GAEL METAB OLIC PANEL carbon dioxide 28 mmol/ L 22-30 Not Available [facility] (Lab) [address] [place], [address], 01/11/2024 19:57:06 01/11/20 24 01/11/2024 COMPR EHENS GAEL METAB OLIC PANEL anion gap 9.3 mmol/ L 14-22 low Not Available [facility] (Lab) [address] [place], [address], 01/11/2024 19:57:06 01/11/20 24 01/11/2024 COMPR EHENS GAEL METAB OLIC PANEL glucose 78 mg/dL 70-99 Not Available [facility] (Lab) [address] [place], [address], 01/11/2024 19:57:06 01/11/20 24 01/11/2024 COMPR EHENS GAEL METAB OLIC PANEL BUN 24 mg/dL 8-19 high Not Available [facility] (Lab) [address] [place], [address], 01/11/2024 19:57:06 01/11/20 24 01/11/2024 COMPR EHENS GAEL METAB OLIC PANEL creatinine 1.01 mg/dL 0.66-1 .25 Not Available [facility] (Lab) [address] [place], [address], 01/11/2024 19:57:06 01/11/2001/11/2024 COMPR EHENS GAEL METAB OLIC PANEL GFR >60 Refer ence Range : [place] ge GFR Healt hy Adult : >60 mL/mi n/1.7 3 m2 Chron ic Kidne y Disea se: 15-60 mL/mi n/1.7 3 m2 Kidne y Failu re: <15/m L/min /1.73 m2 www.n iddk. nih.g ov The MDRD study equat ion has not been valid ated in child melony <18 years of age; pregn ant women ; the elder ly >85 years of age; or in some racia l or ethni c subgr oups, such as Hisct nics. Outsi de the valid ated nolvia eters , estim ated GFR is less accur ate, requi ring clini adrián judgm ent on a case- by-ca se basis . Clini adrián inter preta tion for other races and ages must be made by the clini ayesha. The MDRD study equat ion has not been valid ated for the evalu ation of serum creat inine relat ed to nutri greg l statu s or medic ation usage . For perso ns <18 years of age, a pedia tric GFR calcu lator is avail able on the [facility] websi te: https ://yumiko lindo.jacey rg/pr johness ional s/kdo qi/gf r_cal culat or Not Available [facility] (Lab) [address] [place], [address], 01/11/2024 19:57:06 01/11/2001/11/2024 COMPR EHENS GAEL METAB OLIC PANEL alkaline phosphatase 68 U/L 38-126 Not Available [facility] (Lab) [address] [place], [address], 01/11/2024 19:57:06 01/11/20 24 01/11/2024 COMPR EHENS GAEL METAB OLIC PANEL alanine aminotransfe rase 23 U/L 0-50 Not Available [facility] (Lab) [address] [place], [address], 01/11/2024 19:57:06 01/11/20 24 01/11/2024 COMPR EHENS GAEL METAB OLIC PANEL aspartate aminotransfe rase 31 U/L 15-46 Not Available [facility] (Lab) [address] [place], [address], 01/11/2024 19:57:06 01/11/20 24 01/11/2024 COMPR EHENS GAEL METAB OLIC PANEL bilirubin, total 0.50 mg/dL 0.20-1 .30 Not Available [facility] (Lab) [address] [place], [address], 01/11/2024 19:57:06 01/11/20 24 01/11/2024 COMPR EHENS GAEL METAB OLIC PANEL calcium 9.6 mg/dL 8.4-10 .2 Not Available [facility] (Lab) [address] [place], [address], 01/11/2024 19:57:06 01/11/20 24 01/11/2024 COMPR EHENS GAEL METAB OLIC PANEL total protein 6.5 g/dL 6.3-8. 2 Not Available [facility] (Lab) [address] [place], [address], 01/11/2024 19:57:06 01/11/20 24 01/11/2024 COMPR EHENS GAEL METAB OLIC PANEL albumin 4.0 g/dL 3.0-4. 4 Not Available [facility] (Lab) [address] [place], [address], 01/11/2024 19:57:06 01/11/20 24 01/11/2024 COMPR EHENS GAEL METAB OLIC PANEL globulin 2.5 g/dL 2.6-4. 2 low Not Available [facility] (Lab) [address] [place], [address], 01/11/2024 19:57:06 01/11/20 24 01/11/2024 COMPR EHENS GAEL METAB OLIC PANEL A/G ratio 1.6 ratio 1.0-2. 0 Not Available [facility] (Lab) [address] [place], [address], 01/11/2024 19:57:06 01/11/20 24 01/11/2024 PSA SCREE N PSA medicare screen 1.69 NG/mL 0.00-4 .00 Not Available [facility] (Lab) [address] [place], [address], 01/11/2024 20:41:49 01/11/20 24 01/11/2024 TSH W/REF SEBAS FT4 TSH with reflex free T4 2.740 uIU/m L 0.465- 4.680 Not Available [facility] (Lab) [address] [place], [address], 01/11/2024 20:41:54 02/08/20 23 XR, knee No observ ation record ed. [email or web address] [facility] [address], [place], [address], 02/20/2023 16:13:07 Result Notes None recorded. Problems Name Problem SNOMED Code Status Onset Date Resolution Date Notes Provider Name and Address Organization Details Recorded Time Shoulder joint pain 574715807 Active Not Available [facility] 3 05:20:34 Osteoarthr itis 028158421 Active Not Available [facility] 3 05:20:34 Disorder of rotator cuff 681164341 Active 2021 Not Available [facility] 3 05:20:34 Pain of right shoulder joint 3308976916292 9100 Active 2021 Not Available [facility] 3 05:20:33 Partial thickness rotator cuff tear 407955942 Active 2021 Not Available [facility] 3 05:20:34 Hypothyroi dism 16564450 Active 2021 Not Available [facility] 3 05:20:34 Dupuytren' s contractur e of finger 680163150 Active 2021 Not Available [facility] 3 05:20:34 Otalgia of right ear 2813155899 Active 2021 Not Available [facility] 3 05:20:33 Dupuytren' s disease of palm 517648290 Active 2021 Not Available [facility] 3 05:20:34 Pain in right hand 6032493777380 09 Active 2022 YESENIA Mora null, [place] [facility] 3 09:54:25 Carpal tunnel syndrome of right wrist 7719909870518 08 Active 2022 YESENIA Mora null, [place] [facility] 3 09:54:39 Closed fracture of right patella 1373351190867 9100 Active 2022 Elba Irby ATC L null, [place] [facility] 3 10:13:14 Pain of bilateral hands 7187645999682 9109 Active 2022 YESENIA Baca null, [place] [facility] 3 11:19:42 Lipoma of skin 572468617 Active 2022 Kim florian MD [address] [place] [address], [address] , [place] [facility] 3 14:04:15 Pain of right knee joint 3512786934161 00 Active 2022 YESENIA Pink null, [place] [facility] 3 16:48:32 residential current use of non-steroi jesus anti-infla mmatory drug 7147191896381 03 Active 2022 Mihcell Moreira CMA null, [facility] 3 17:38:39 Anemia 834245093 Active 2023 Charmaine Casarez MA null, [facility] 4 12:22:52 Impacted cerumen of bilateral ears 3003655744288 108 Active 2023 Kim florian MD [address] [address], [place], [address] , [facility] 4 15:46:44 Upper respirator y infection 00941454 Active 2024 Alivia Fisher MA null, [facility] 5 17:34:53 Cough 63696326 Active 2024 YESENIA Condon null, [facility] 5 14:36:16 Problem Notes None recorded. Procedures Surgical History Date Name Laterality Status Provider Name and Address Organization Details Recorded Time 01/06/20 Medicare Wellness CPT Code, Initial completed Sarah Porter RN [facility] 01/05/2023 14:15:03 12/02/19 23 Carpal tunnel surgery completed YESENIA Condon [facility] 01/05/2023 13:58:48 10/29/19 22 Rotator cuff surgery completed Not Available [facility] 07/07/2022 05:14:12 05/27/19 10 Colonoscopy completed Not Available [facility] 07/08/19 05:14:12 Nose completed Not Available [facility] 05/2022 05:14:12 Foot Surgery completed Not Available [facility] 07/07/2022 05:14:12 repair of tendon completed YESENIA Condon [facility] 01/05/2023 13:58:24 Imaging Results None recorded. Procedure Notes None recorded. Medical Equipment None Reported. Allergies No known drug allergies Medications Name Sig Start Date Stop Date Status Note LastModified by Organization Details LastModified Time amoxicill in 500 mg capsule TAKE 2 CAPSULES BY MOUTH NOW THEN TAKE 1 CAPSULE BY MOUTH 4 TIMES DAILY UNTIL GONE 10/27 completed Not Available Not Available Not Available prednison e 10 mg tablet 10/14 completed Not Available Not Available Not Available azithromy lucio 250 mg tablet TAKE 2 TABLETS BY MOUTH TODAY, THEN TAKE 1 TABLET DAILY FOR 4 DAYS DIRECTED active Not Available Not Available No t Available benzonata te 200 mg capsule active Not Available Not Available Not Available hydrocodo ne 5 mg-acetam inophen 325 mg tablet 01/04 completed Not Available Not Available Not Available meloxicam 15 mg tablet active Not Available Not Available Not Available prednison e 20 mg tablet 10/14 completed Not Available Not Available Not Available meloxicam 7.5 mg tablet TK 1 T PO BID PRN 08/30 completed Not Available Not Available Not Available oxycodone -acetamin ophen 5 mg-325 mg tablet 01/04 completed Not Available Not Available Not Available ofloxacin 0.3 % ear drops 12/08 completed Not Available Not Available Not Available methocarb cass 750 mg tablet 01/04 completed Not Available Not Available Not Available Kenalog 10 mg/mL suspensio n for injection In office injectio n administ ered by the provider 12/08 completed [facility]: [id number] 08-26 Not Available Not Available Not Available benzonata te 100 mg capsule Take 2 capsules every 4-6 hours by oral route as needed for 30 days. active Not Available Not Available No t Available levothyro xine 50 mcg tablet Take 1 tablet every day by oral route. 12/08 completed Not Available Not Available Not Available cephalexi n 500 mg capsule 04/26 completed Not Available Not Available Not Available monteluka st 10 mg tablet Take 1 tablet every day by oral route. 09/20 completed Not Available Not Available Not Available methylpre dnisolone 4 mg tablets in a dose pack Take 1 package as needed by oral route as directed . active Not Available Not Available No t Available fluticaso ne propionat e 50 mcg/actua tion nasal spray,angelo pension SPRAY 1 SPRAY BY INTRANAS AL ROUTE QD 08/22 completed Not Available Not Available Not Available doxycycli ne hyclate 100 mg tablet 04/26 completed Not Available Not Available Not Available loratadin e 10 mg tablet TK 1 T PO QD PRN 08/22 completed Not Available Not Available Not Available amoxicill in 875 mg-potass ium clavulana te 125 mg tablet TK 1 T PO Q 12 H FOR 10 DAYS 08/22 completed Not Available Not Available Not Available Mucinex 08/22 completed current illness Not Available Not Available Not Available Sudafed 24 Hour Take one tablet daily 08/22 completed Not Available Not Available Not Available ropivacai ne (PF) 5 mg/mL (0.5 %) injection solution Take 2 mg by injectio n route. 12/08 completed Not Available Not Available Not Available Flucelvax Quad (PF) 60 mcg (15 mcg x 4)/0.5 mL IM syringe ADM 0.5ML IM UTD 08/22 completed Not Available Not Available Not Available Fluad 65yr up(PF)45 mcg(15 mcgx3)/0. 5 mL intramusc ular syringe active Not Available Not Available Not Available Afluria Qd (36 mos up)(PF)60 mcg (15 mcg x4)/0.5 mL IM syringe ADM 0.5ML IM UTD 10/14 completed Not Available Not Available Not Available ID NOW COVID-19 Test Kit DIRECTED 10/27 completed Not Available Not Available Not Available Fluad Quad (65yr up)(PF) 60 mcg (15 mcg x 4)/0.5mL IM syringe ADM 0.5ML IM UTD active Not Available Not Available No t Available Vitals Date Recorded Body height Body mass index (BMI) Body weight Body temperature Heart rate Systolic And Diastolic Provider Name and Address Organization Details Last Updated DateTime 3 182.88 cm 23.1 kg/m2 88816.7 g 97.7 [degF] 78 /min 118/60 mm[Hg] YESENIA Condon [place] [employer] [facility] 3 14:00:30 Date Recorded Pain severity - 0-10 verbal numeric rating [Score] - Reported Provider Name and Address Organization Details Last Updated DateTime 01/05/2023 0 Sarah Porter RN [place] [employer] [facility] 01/05/2023 14:15:22 Date Recorded Body height Body mass index (BMI) Body weight Body temperature Oxygen saturation Oxygen saturation in Arterial blood by Pulse oximetry Heart rate Respiratory rate Pain severity - 0-10 verbal numeric rating [Score] - Reported Systolic And Diastolic Provider Name and Address Organization Details Last Updated DateTime 4 182.88 cm 23.7 kg/m2 14197.6 6 g 98.2 [degF] 96 % 96 % 60 /min 16 /min 0 128/72 mm[Hg] Dre Davis LPN [facility] [employer] [facility] 4 13:55:25 Date Recorded Body height Body mass index (BMI) Body weight Provider Name and Address Organization Details Last Updated DateTime 02/02/2023 182.88 cm 23.7 kg/m2 33151.66 g Elba Irby ATC L [facility] 02/02/2023 09:38:06 Date Recorded Body height Provider Name an d Address Organization Details Last Updated DateTime 02/07/2023 182.88 cm YESENIA Pink [facility] 02/07/2023 16:47:43 Date Recorded Body height Body mass index (BMI) Body weight Body temperature Heart rate Respiratory rate Oxygen saturation Oxygen saturation in Arterial blood by Pulse oximetry Pain severity - 0-10 verbal numeric rating [Score] - Reported Systolic And Diastolic Provider Name and Address Organization Details Last Updated DateTime 4 182.88 cm 23.7 kg/m2 81900.6 6 g 98 [degF] 70 /min 18 /min 94 % 94 % 0 122/70 mm[Hg] Dre Davis LPN [facility] 4 15:27:09 Social History Question Answer Notes LastModified by Organization Details LastModified Time Tobacco Smoking Status Never Smoker Haritha serrano [facility] 02/07/2023 16:32:48 Do You Have An Advance Directive? Yes Asked To Bring In Copy [id number] Information not available 07/07/2022 Do You Wear A Helmet When Biking? Yes [email or web address] Information not available 02/07/2023 Are You Blind Or Do You Have Difficulty Seeing? Yes Glasses [email or web address] Information not available 02/07/2023 In The 14 Days Before Symptom Onset, Have You Had Close Contact With A Laboratory-conf irmed COVID-19 While That Case Was Ill? No [email or web address] Information not available 02/07/2023 In The 14 Days Before Symptom Onset, Have You Had Close Contact With A Person Who Is Under Investigation For COVID-19 While That Person Was Ill? No [email or web address] Information not available 02/07/2023 Are You Deaf Or Do You Have Serious Difficulty Hearing? Yes Bilateral Hearing Aids [email or web address] Information not available 02/07/2023 What Type Of Diet Are You Following? REGULAR [id number] Information not available 07/07/2022 What Is The Highest Grade Or Level Of School You Have Completed Or The Highest Degree You Have Received? [id number] [email or web address] Information not available 02/07/2023 Have There Been Any Changes To Your Family Or Social Situation? No [email or web address] Information not available 02/07/2023 What Is The Fluoride Status Of Your Home? Unknown [email or web address] Information not available 02/07/2023 Are There Any Guns Present In Your Home? No Information not available 02/07/2023 Do You Use Insect Repellent Routinely? No [email or web address] Information not available 02/07/2023 Where Do You Live? SingleLevelHouse With Basement [email or web address] Information not available 02/07/2023 Presence Of Domestic Violence No [email or web address] Information not available 01/05/2023 Are You Able To Care For Yourself? Yes [email or web address] Information not available 01/05/2023 Are You Blind Or Do Yo Have Difficulty Seeing? No Information not available 01/05/2023 Are You Deaf Or Do You Have Serious Difficulty Hearing? Yes Hearing Aids [email or web address] Information not available 01/05/2023 Live Alone Of With Others? With Others [email or web address] Information not available 01/05/2023 Do You Have A Medical Power Of Independent Trader? Yes [email or web address] Information not available 02/07/2023 What Was The Date Of Your Most Recent Tobacco Screening? 01/05/2023 [email or web address] Information not available 02/07/2023 Do You Have Any Pets? No [email or web address] Information not available 02/07/2023 What Is Your Relationship Status? [id number] Information not available 07/07/2022 Do You Use Your Seat Belt Or Car Seat Routinely? Yes [email or web address] Information not available 02/07/2023 Do You Have Smoke And Carbon Monoxide Detectors In Your Home? Yes [email or web address] Information not available 02/07/2023 Are You Passively Exposed To Smoke? No [email or web address] Information not available 02/07/2023 Are There Any Smokers In Your House? No [email or web address] Information not available 02/07/2023 Do You Use Sunscreen Routinely? No [email or web address] Information not available 02/07/2023 Has Tobacco Cessation Counseling Been Provided? No N/a [email or web address] Information not available 02/07/2023 Have You Recently Traveled Abroad? No Information not available 02/07/2023 Do You Have Difficulty Walking Or Climbing Stairs? No Information not available 02/07/2023 Do You Have Any Dietary Restrictions? No [email or web address] Information not available 02/07/2023 Sex: Male Functional Status Question Answer Note LastModified by [employer] ion Details LastModified Time Do you use any illicit or recreational drugs? No [email or web address] Information not available 02/07/2023 Do you or have you ever used any other forms of tobacco or nicotine? No Information not available 02/07/2023 What is your level of alcohol consumption? Occasional [id number] Information not available 07/07/2022 Do you or have you ever used smokeless tobacco? Never used smokeless tobacco [id number] Information not available 07/07/2022 Do you have transportation difficulties? No [email or web address] Information not available 02/07/2023 Are you able to walk? YESWOREST [email or web address] Information not available 02/07/2023 Do you have difficulty doing errands alone? No [email or web address] Information not available 02/07/2023 Are you able to care for yourself? Yes [email or web address] Information n ot available 02/07/2023 What is your occupation? [employer] [email or web address] Information not available 02/07/2023 Do you have difficulty dressing or bathing? No [email or web address] Information not available 02/07/2023 Do you or have you ever used e-cigarettes or vape? Never used electronic cigarettes [email or web address] Information not available 02/07/2023 What is your exercise level? Moderate [id number] Information not available 07/07/2022 Mental Status Question Answer Note LastModified by Organizat ion Details LastModified Time Do you feel stressed (tense, restless, nervous, or anxious, or unable to sleep at night)? [id number] [email or web address] Information not available 02/07/2023 Do you have difficulty concentrating, remembering or making decisions? No [email or web address] Information no t available 02/07/2023 Family History Relationship Description Onset Age of this Age Resolved Age Notes LastModified by Organization Details LastModified Time Father Arthritis [email or web address] Not availa ble 03/19/2024 15:07:31 Father Hyperlipidem ia Not available 03/19 15:07:31 Father Hypertensive disorder [id number] Not available 07/07/2022 05:14:15 Mother Alzheimer's disease deceas ed [email or web address] Not available 03/19/2024 15:07:31 Medical History Condition Response BLINDNESS N NERVE DISEASE N RHEUMATIC FEVER N BLADDER PROBLEMS N KIDNEY STONES N MRSA N OTHER # 1 N POLIO N LUNG DISEASE/DISORDER N HISTORY OF DRUG ABUSE N RADIATION / CHEMOTHERAPY N COPD N Other # 2 N BLOOD DISEASES N EAR OR HEARING PROBLEMS N MUMPS N SHINGLES N DEPRESSION (INCLUDING POST ) N BOWEL PROBLEMS N STROKE/TIA N ULCERS N BENIGN PROSTATIC HYPERPLASIA N MEASLES N HYPOTENSION N MYOCARDIAL INFARCTION N OBESITY N GERD/NAUSEA N ANEURYSM N URINARY/BLADDER/KIDNEY PROBLEMS N CORONARY ARTERY DISEASE (CAD) N ADDICTION CONCERNS N ENDOMETRIOSIS N Impotence N USE OF BLOOD THINNERS N SKIN PROBLEMS N GASTROINTESTINAL DISORDER N PERIPHERAL VASCULAR DISEASE N MUSCLE,JOINT OR BONE PROBLEMS N GASTROINTESTINAL BLEEDING N BLOOD CLOTS N ASTHMA N CATARACTS N ERECTILE DYSFUNCTION N VARICOSITIES N GI PROBLEMS N Low Testosterone N INFERTILITY N AIDS/HIV N CHEMOTHERAPY / RADIATION N LIVER DISEASE N MALE HYPOGONADISM N HYPERTENSION N Deficiency N TOURETTE'S N ANXIETY DISORDER N BLOOD TRANSFUSION N ANEMIA/BLOOD DISORDER N CHRONIC EAR INFECTIONS N BRONCHITIS N TUBERCULOSIS N GLAUCOMA N FOOT PROBLEM N DIVERTICULITIS N CHICKENPOX N SLEEP APNEA N INFECTIOUS DISEASE N HEART ARRHYTHMIA N PROSTATE N INSOMNIA N HIGH CHOLESTEROL / HYPERLIPIDEMIA N HYPERTHYROIDISM N EYE PROBLEMS N EDEMA N CHRONIC PAIN SYNDROME N HYPOTHYROIDISM N CAROTID BLOCKAGE N CONSTIPATION N BACK / NECK PROBLEMS N ATHEROSCLEROSIS N BREAST PROBLEMS N DIALYSIS N ECZEMA N OSTEOPOROSIS N ARTHRITIS Y APPENDICITIS N DIABETES, TYPE N BAD TEETH N ENT N HEARTBURN / REFLUX N AUTISM SPECTRUM DISORDER (ASD) N HEPATITIS / LIVER DISEASE N GOUT N SLEEP DISORDER N ALZHEIMER'S DISEASE N Brain Problems N HERPES N DEMENTIA N HEADACHES/MIGRAINES N SEIZURES/EPILEPSY N VASCULAR DISEASE N PACEMAKER N Blood Disorder N DIZZINESS N HEART DISEASE/HEART PROBLEMS N KIDNEY DISEASE N MULTIPLE SCLEROSIS N CARDIAC ARRHYTHMIA N CANCER: SPECIFY N ATRIAL FIBRILLATION N Gall Stones N PULMONARY EMBOLISM N AUTOIMMUNE DISEASE N Immunizations Vaccine Type Date Status Note Provider Nam e and Address Organization Details Recorded Time COVID-19, mRNA, LNP-S, PF, 100 mcg/0.5mL dose or 50 mcg/0.25mL dose 1 completed LALITA Gonzales, [facility] 01/11/2024 13:01:36 COVID-19, mRNA, LNP-S, PF, 100 mcg/0.5mL dose or 50 mcg/0.25mL dose 1 completed LALITA Gonzales, [facility] 01/11/2024 13:01:36 Influenza, split virus, quadrivalent, preservative 9 completed LALITA Gonzales, [facility] 01/11/2024 13:01:36 Pneumococcal conjugate PCV 13 8 completed Not Available [facility] 07/07/2022 05:27:06 influenza, unspecified formulation 7 completed LALITA Gonzales, [facility] 01/11/2024 13:01:36 pneumococcal polysaccharide PPV23 9 completed Not Available [facility] 07/07/2022 05:27:06 Past Encounters Encounter ID Performer Location Encounter Start Date Encounter Closed Date Diagnosis/Indication Diagnosis SNOMED-CT Code Diagnosis ICD10 Code Diagnosis Note [id number] Kim florian MD [facility] [place] [address] [facility] , [facility] [place] [address] 10/27/2020 00:00:00 11/04/2020 09:19:35 [id number] Rufino Conklin MD [facility] [place] [address] [place] [address] 11/11/2020 00:00:00 11/11/2020 10:36:19 [id number] MD ROSARIO Da Silva[facility] [place] [address] [place] [address] 12/01/2021 00:00:00 12/01/2021 09:46:33 [id number] MD ROSARIO LiaoS[facility] [place] [address] [place] [address] 01/04/2022 00:00:00 01/04/2022 16:51:05 [id number] Rufino Conklin MD [facility] [place] [address] [place] [address] 01/12/2022 00:00:00 01/12/2022 12:30:04 [id number] Rufino Conklin MD [facility] [place] [address] [place] [address] 03/09/2022 00:00:00 03/09/2022 11:50:01 [id number] Rufino Conklin MD [facility] [place] [address] [place] [address] 03/16/2022 00:00:00 03/16/2022 10:02:33 [id number] Rufino Conklin MD [facility] [place] [address] [place] [address] 03/23/2022 00:00:00 03/23/2022 10:49:21 [id number] Kim florian MD [facility] [place] [address] [place] [address] 04/05/2022 00:00:00 04/05/2022 15:16:09 [id number] Rufino Conklin MD [facility] [place] [address] [place] [address] 04/27/2022 00:00:00 04/27/2022 11:11:27 [id number] Rufino Conklin MD [facility] [place] 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 If he loses more muscle or the night splinting isn't helping then we would need to do a carpal tunnel release [id number] Rufino Conklin MD [facility] [place] 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 [place] [address] 12/08/2022 11:09:02 12/08/2022 11:55:41 Pain in right hand 9491329526 73923 M79.641 Dupuytren' s disease of palm 703406403 M72.0 [id number] Simeon James MD [facility] [place] [address] [place] [address] 12/15/2022 10:05:11 12/15/2022 10:32:51 Pain in right hand 0997251769 39790 M79.762 [id number] Kim florian MD [facility] [place] [address] [place] [address] 01/05/2023 13:53:16 01/05/2023 14:35:23 Screening - NAD 565374367 Z13.9 C-scope: 05/27/2009 , next in 10 yearsC-sco pe 01/21/2020 : Dr Zabala next in 10 years Does not do flu shotPCV#13 08/22/17, #23 08/30/18UT D on COVID 19Can do Tdap, shingles vaccine. RTC in one year as per Maik Matthew if any symptoms worsenHe did verbalize his understand ing of the above Dupuytren' s contracture of finger 883574873 M72.0 [place] Dr Conklin 12/01/2021 , next 01/12/2022 Dr Cnoklin 10/26/2022 , next apt 02/02/2023 Lipoma of skin 227834429 D17.30 Get a referral to Dr Conklin hand surgeon Seen by Dr Conklin 12/01/2021 Pain of ri ght shoulder joint 5371168744 9604356 M25.511 S/p dislocatio n, s/p surgery done in [facility] 10/26/2021 , Dr Paul Now sees Dr Conklin, next apt 01/12/2022 Screening for malignant neoplasm of prostate 515117257 Z12.5 Screening for cardiovascular system disease 814463219 Z13.6 Pain in right hand 74516 33446 10753 M79.641 Manuel TATE 12/15/2022 , next in 4-6 weeks Adult heal th examination 404237617 Z00.00 Screening for disorder 210702467 Z13.9 Pain of ri ght knee joint 0247075930 58585 M25.561 Get an apt with ortho [id number] Simeon James MD [facility] [place] [address] [place] [address] 02/02/2023 09:35:03 02/02/2023 09:55:21 Pain in right hand 1494333927 81212 M79.975 [id number] Franc Fox MD [facility] [place] 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-inflammatory drug 3202490395 69803 Z79.1 M17.12 [id number] Kim florian MD [facility] [address] [facility] [address] , [place] [facility] [place] [address] 01/11/2024 13:42:35 01/11/2024 14:25:18 Pain of right knee joint 7540859827 [address] Fox, on meloxicam, takes PRN Screening - NAD 00025871 3 Z13.9 C-scope: 05/27/2009 , next in 10 yearsC-sco pe 01/21/2020 : Dr Zabala next in 10 years Does not do flu shotPCV#13 08/22/17, #23 08/30/18UT D on COVID 19Can do Tdap, shingles vaccine RTC in one year as per wishvaleriDo labsER if any symptoms worsenHe did verbalize his understand ing of the above Dupuytren' s contracture of finger 854388068 M72.0 [address] [place] Dr Conklin 12/01/2021 , next 01/12/2022 Dr Conklin 10/26/2022 , next apt 02/02/2023 Rachid Fox 12/15/2022 Lipoma of skin 750910646 D17.30 Get a referral to Dr Conklin hand surgeon Seen by Dr Conklin 12/01/2021 Pain of ri ght shoulder joint 4702086111 2524915 M25.511 S/p dislocatio n, s/p surgery done in [place] [facility] 10/26/2021 , Dr Paul Screening for malignant neoplasm of prostate 492977890 Z12.5 Screening for cardiovascular system disease 484360233 Z13.6 Pain in right hand 51027 26287 08641 M79.641 Manuel TATE 12/15/2022 , next in 4-6 weeks [id number] Kim florian MD [facility] [address] [facility] [place] [address] 03/19/2024 15:06:30 03/19/2024 16:15:12 Pain of right knee joint 6571937780 [address] Fox, on meloxicam, takes PRN Screening - NAD 64186527 3 Z13.9 C-scope: 05/27/2009 , next in 10 yearsC-sco pe 01/21/2020 : Dr Zabala next in 10 years Does not do flu shotPCV#13 08/22/17, #23 08/30/18UT D on COVID 19Can do Tdap, shingles vaccine RTC as scheduledD o labsER if any symptoms worsenHe did verbalize his understand ing of the above Dupuytren' s contracture of finger 176225648 M72.[address] [place] Conklin 12/01/2021 , next 01/12/2022 Dr Conklin 10/26/2022 , next apt 02/02/2023 Rachid Fox 12/15/2022 Lipoma of skin 937872573 D17.30 Get a referral to Dr Coknlin hand surgeon Seen by Dr Conklin 12/01/2021 Pain of ri t shoulder joint 8715935126 7159864 M25.511 S/p dislocatio n, s/p surgery done in [place] [facility] 10/26/2021 , Dr Paul Screening for cardiovascular system disease 857082606 Z13.6 Pain in right hand 86858 50573 49601 M79.641 Manuel TATE 12/15/2022 , next in 4-6 weeks Impacted c erumen of bilateral ears 0927186289 128284 H61.23 Eduin ears flushed with warm water, moderate amount of wax extracted, he tolerated the procedure well Health Concerns Section Related Observation LastModified by Organization Sarah ls LastModified Time None Recorded Concern Status LastModified by Organization Details LastModified Time None Recorded Advance Directives Directive Y: asked to bring in copy Payers Insurance Date Sequence Insurance Name Policy Number Policy Cherry Covered Member ID Cherry Member ID Guarantor Name 03/23/2024 1 [employer] (MEDICARE REPLACEMENT/A DVANTAGE - HMO) [id number] Rufino Wilson [id number] Rufino Wilson 03/15/2024 1 [facility] (MEDICARE REPLACEMENT/A DVANTAGE - HMO) [id number] Rufino Macdonald Steve [id number] Rufino Wilson Notes Date Note Type Note Provider Name and Address Organization Details Recorded Time 01/05/2023 text/html 09/20/16Here to establish carePMD was Dr. Collins hx:Doing well, no complaints, not on any medications,Reveiwed his past social, surgical and family history. 02/14/17CV:Here with c/o cough since a weekHe feels that he may have some sore throat and has been taking the z-pack, and feels that this did not workHe states that he has the cough, is some phlegm and is yellowish, no bloodNo fevers or chills, no chest pain, SOBNo pre-syncope or syncope, no wheezingNo diarrhea, no blood in stool or urineNo rashHas some nasal congestion, no blood in the nose, no sinus pressure notedHe does feel a little tiredHe would also like to get some labs for his visit after he returns from [place] OV 08/22/17:Here for his routine aptHe states that he is doing 'great'He is fasting and wants to do the labs today OV 04/26/18:ACV:c/o R knee pain since the past 3 monthsHe does play 'pickelball' that involves a lot of walking and stoppingC/o it aching with prolonged walkingNo swellingNo laxity notedNo fevers or chills OV 08/30/18:Here for his routine aptHe states that he is doing 'very well'He states that he did see the ortho and his R knee pain is now very intermittent OV 10/15/2019:Here for his routine aptHe did do the labsHe feels wellHe is here for his MWV also OV 10/27/2020:Here for his yearly aptHe is doing 'great'No new labsHere for his MWV also OV 01/04/2022:Here for his yearly apt, and his MWV, he is doing very wellNo new labsS/p R shoulder surgery, now in PT, also did see Dr Conklin OV 04/05/2022:ACV:R ear ache, muffled hearing, feels could be wax, no d/c from ear, no fevers or chills, no dizzyness noted OV 01/05/2023: Here for his f/u apt, he is doing very well, very active, has noted some R knee pain, is doing very well post surgery for his R CTR and Dupuytren's Christiantanalia Briones MD [address], [facility] [address], [place], [address], [facility] 01/05/2023 16:29:49 02/07/2023 text/html patient returns at this time for evaluation of his right knee. He started having problems approximately 6 weeks ago. He did have problems with his right knee back starting in 2018 which she attributed to playing pickleball to aggressively. He continue taking the Mobic 7.5 mg twice daily and his symptoms quite a down spontaneously. He does wear the knee brace when he plays pickleball he has been playing a lot of pickle ball. His chief complaint is proximal lateral calf pain. A sudden movement play pickleball about 6 weeks ago seem to initiate his symptoms. He took ibuprofen about 3 days. Prior to this he was fine had no symptoms except for occasional minor twinge of discomfort in the lateral aspect of his right knee. His symptoms currently are mild but present. He states he is not suffering. More recently he went on a 15 day cruise involved a great deal of walking and he had mild symptoms with that as well. Franc Fox MD [address], [address], [place], [address], [facility] [place] 02/20/2023 16:14:55 01/11/2024 text/html 09/20/16Here to establish careD was Dr. Collins hx:Doing well, no complaints, not on any medications,Reveiwed his past social, surgical and family history.02/14/17CV: Here with c/o cough since a weekHe feels that he may have some sore throat and has been taking the z-pack, and feels that this did not workHe states that he has the cough, is some phlegm and is yellowish, no bloodNo fevers or chills, no chest pain, SOBNo pre-syncope or syncope, no wheezingNo diarrhea, no blood in stool or urineNo rashHas some nasal congestion, no blood in the nose, no sinus pressure notedHe does feel a little tiredHe would also like to get some labs for [place] 08[place]17:Here for his routine aptHe states that he is doing 'great'He is fasting and wants to do the labs todayOV 04/26/18:ACV:c/o R knee pain since the past 3 monthsHe does play 'pickelball' that involves a lot of walking and stoppingC/o it aching with prolonged walkingNo swellingNo laxity notedNo fevers or chillsOV 08/30/18:Here for his routine aptHe states that he is doing 'very well'He states that he did see the ortho and his R knee pain is now very intermittentOV 10/15/2019:Here for his routine aptHe did do the labsHe feels wellHe is here for his MWV alsoOV 10/27/2020:Here for his yearly aptHe is doing 'great'No new labsHere for his MWV alsoOV 01/04/2022:Here for his yearly apt, and his MWV, he is doing very wellNo new labsS/p R shoulder surgery, now in PT, also did see Dr ConklinOV 04/05/2022:ACV:R ear ache, muffled hearing, feels could be wax, no d/c from ear, no fevers or chills, no dizzyness noted OV 01/05/2023: Here for his f/u apt, he is doing very well, very active, has noted some R knee pain, is doing very well post surgery for his R CTR and Dupuytren's OV 01/11/2024: Here for his f/u apt, he is doing well today, no new labs Kim Briones MD [address] [facility], [address], [place], [address], [place] [facility] 01/11/2024 14:25:16 03/19/2024 text/html 09/20/16Here to establish carePMD was Dr. Collins hx:Doing well, no complaints, not on any medications,Reveiwed his past social, surgical and family history.02/14/17CV: Here with c/o cough since a weekHe feels that he may have some sore throat and has been taking the z-pack, and feels that this did not workHe states that he has the cough, is some phlegm and is yellowish, no bloodNo fevers or chills, no chest pain, SOBNo pre-syncope or syncope, no wheezingNo diarrhea, no blood in stool or urineNo rashHas some nasal congestion, no blood in the nose, no sinus pressure notedHe does feel a little tiredHe would also like to get some labs for his visit [place] 08/22/17:Here for his routine aptHe states that he is doing 'great'He is fasting and wants to do the labs todayOV 04/26/18:ACV:c/o R knee pain since the past 3 monthsHe does play 'pickelball' that involves a lot of walking and stoppingC/o it aching with prolonged walkingNo swellingNo laxity notedNo fevers or chillsOV 08/30/18:Here for his routine aptHe states that he is doing 'very well'He states that he did see the ortho and his R knee pain is now very intermittentOV 10/15/2019:Here for his routine aptHe did do the labsHe feels wellHe is here for his MWV alsoOV 10/27/2020:Here for his yearly aptHe is doing 'great'No new labsHere for his MWV alsoOV 01/04/2022:Here for his yearly apt, and his MWV, he is doing very wellNo new labsS/p R shoulder surgery, now in PT, also did see Dr Michael 04/05/2022:ACV:R ear ache, muffled hearing, feels could be wax, no d/c from ear, no fevers or chills, no dizzyness noted OV 01/05/2023: Here for his f/u apt, he is doing very well, very active, has noted some R knee pain, is doing very well post surgery for his R CTR and Dupuytren's OV 01/11/2024: Here for his f/u apt, he is doing well today, no new labsOV 03/19/2024: Here for 'ear flush' as he has noted 'muffled hearing', no fevers or chills, no dizziness Kim Briones MD [address] [facility], [facility] [address], [place], [address], [place] [facility] 03/19/2024 16:18:19
[2024-11-28 12:06] VITALS: BP 146/87; PULSE 81; RESP 24; TEMP 37.8; O2SAT 96
[2024-11-28 12:34] LABS: EDCOVIDSCREEN Negative (Negative)
[2024-11-28 12:37] LABS: EDUAAPPEAR Clear; EDUABILI 1+ (Negative); EDUABLOOD 1+ (Negative); EDUACOLOR1 Yellow; EDUAGLUCOSE Negative (Negative); EDUAKETONE 2+ (Negative); EDUALEUKO Negative (Negative); EDUANITRATE Negative (Negative); EDUAPH 6.0; EDUAPROTEIN 1+ (Negative); EDUASPGRAVITY 1.030; EDUAUROBILI 0.2
== END 2024-11-28 12:30 | disposition short-term general hospital (02) ==
LOC: EXPTROY 12:03
PROVIDERS: Emergency Provider Nurse Practitioner Family; PCP Internal Medicine
DX: R41.0 Disorientation, unspecified (principal); R26.81 Unsteadiness on feet; Z20.822 Contact with and (suspected) exposure to COVID-19
CPT/HCPCS: 81003; 87426; 99213; G0463

== ENCOUNTER 2024-11-28 12:47 | Emergency (ER) | payer MEDICARE, SELFPAY ==
[2024-11-28] VITALS (7 sets, daily range): BP systolic 142–172; BP diastolic 76–94; PULSE 75–86; RESP 16–20; TEMP 38.6; O2SAT 95–100
--- NOTE | ~2024-11-28 | XR_ITS ---
CHEST RADIOGRAPH CLINICAL HISTORY: weakness . COMPARISON: None available TECHNIQUE: Single portable view of the chest. FINDINGS The cardiomediastinal silhouette is unremarkable. Asymmetric hazy opacification of the left hemithorax, likely related to technique rather than intrins ic pathology. Trace bibasilar atelectasis, left greater than right. The remainder of the lungs are clear. IMPRESSION: Trace bibasilar atelectasis, without focal infiltrate or effusion. Reviewed, dictated and finalized at location A.
--- NOTE | ~2024-11-28 | CT_ITS ---
EXAMINATION: CTA BRAIN/CAROTID DATE: 11/28/2024 19:26 INDICATION: Unsteady gait TECHNIQUE: Computed tomographic angiography (CTA) of the head and neck was performed with 100 mL Omni paque-350 intravenous contrast. Multiplanar reconstructions and maximum intensity projection 3D-recon structions of the carotid arteries and of the intracranial arteries were created by the technologist on a separate workstation. Precontrast CT of the head was also obtained. Automated exposure control and iterative reconstruction technique were employed.The dose-length product was 1869.76 mGy-cm. COMPARISON: None. FINDINGS: Carotid arteries: Thoracic aorta is normal in caliber with no dissection. There is no evident atherosclerotic plaque wi th 0% stenosis of the right and left carotid bulbs relative to normal distal artery lumen diameter (N ASCET criteria). There is 50% stenosis near the origin of the left vertebral artery with mild postste notic dilation. Dependent atelectasis in the visualized upper lungs. Cervical soft tissues are unrema rkable. Severe cervical spondylosis. Head: No acute intracranial hemorrhage, acute infarction or abnormal extra axial fluid collection. Ventricl es are normal and symmetric. No mass/mass effect. No abnormally enhancing brain lesions on the postco ntrast imaging. Changes of bilateral intraocular lens replacement. The orbits and mastoid air cells a re normal. Mucosal thickening in the bilateral maxillary and right ethmoid sinuses. Intracranial arteries Vertebral arteries are codominant. Minimal atherosclerotic calcifications without hematoma significan t stenosis at the bilateral carotid siphons. There is no hemodynamically significant stenosis in the vertebral, basilar and internal carotid arteries. Both A1 and P1 segments are patent. The right P1 se gment is diminutive with majority of flow to the right posterior cerebral artery supplied via a paten t right posterior commuting artery. There also patent diminutive left posterior an anterior communica ting arteries. There are no aneurysms identified. Cerebral arterial arborization appears symmetric. IMPRESSION: 1. 0% stenosis of the right and left carotid bulbs relative to normal distal artery lumen diameter (N ASCET criteria). 2. 50% stenosis at the origin of the left vertebral artery. 3. Normal brain with no acute intracranial process or abnormally enhancing brain lesions. Reviewed, dictated and finalized at location A. IMPRESSION: 1. 0% stenosis of the right and left carotid bulbs relative to normal distal ar yady lumen diameter (NASCET criteria). 2. 50% stenosis at the origin of the left vertebral artery. 3. Normal brain with no acute intracranial process or abnormally enhancing brai n lesions.
--- OUTSIDE RECORDS SUMMARY | 2024-11-28 17:40 | XMS_ITS | Clinical Summary ---
Author Organization [facility] Address [address] 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 This disclosure is being madepursuant to the Care Everywhere program and may not contain all information available regarding this patient. Last updated 18.[facility] [employer] Allergies No known active allergies Social History [...]
--- OUTSIDE RECORDS SUMMARY | 2024-11-28 17:41 | XMS_ITS | Continuity of Care Document ---
Author Organization [facility] Address [address] [place] [address] Phone Care Team Providers Care Admitting Supervisor Name Role Phone Nielsen OD, Jose Alberto Unavailable Unavailable Procedures Procedure Date Eye Exam & Treatment Refraction Advance Directives Directive Yes / No Effective Date File Name No Information Encounters Encounter Description Practice Location Reason(s) For Visit Diagnoses Date Provider Providers Copied on Encounter [facility], [address], [place], [place], [id number], tel:[phone] [facility] No Information 4-201 0 Nielsen OD Jose Alberto. [address] , [address], [place], [address], [place]. tel:[phone] Family History Family Member Type Diagnosis Age At Onset No Information Payers Payer name Insurance type Covered green party ID Authoriza tion(s) [employer] Plan [id number] Social History Type Description Quantity Date Captured Comments Sex Male Smoking Status No Information Chief Complaint And Reason For Visit No Information Reason For Referral Reason For Referral No Information History Of Present Illness Encounter Date Complaint History Of Prese nt Illness No Information Functional Status Date Functional Assessmen t No Information Instructions Date Instruction Additional Infor mation No Information Assessments Type Assessment Date No Information Patient Care Teams Name Effective Dates (start - stop) Status Members No Information
--- NOTE | 2024-11-28 17:55 | ECG_ITS ---
Test Date: 2024-11-28 18:24:45 Measurements Intervals [place] Rate: 75 P: 58 [place]: 170 QRS: 62 QRSD: 87 T: 55 QT: 368 QTc: 413 Interpretive Statements SINUS RHYTHM POSSIBLE LEFT ATRIAL ENLARGEMENT [-0.1mV P-WAVE IN V1/V2] No previous ECG available for comparison Electronically Signed On 11-30-2024 15:35:14 CDT by Chidi Chau M.D.
[2024-11-28] MEDS: SODIUM CHLORIDE 0.9% IV 1,000 ML 999 ML IV CONT (18:14)
[2024-11-28 18:18] LABS: Hematocrit 42.9 % (42.0-52.0); Hemoglobin 14.9 g/dL (14.0-18.0); Mean Corpuscular HGB Conc 34.7 g/dl (32-36); Mean Corpuscular Hemoglobin 31.2 pg (26-34); Mean Corpuscular Volume 89.9 fl (80-100); Platelet Count Result 199 k/mm3 (150-375); Red Blood Count 4.77 M/mm3 (4.6-6.20); White Blood Count 13.4 K/mm3 (4.5-10.0)
[2024-11-28 18:19] LABS: Add Urine Microscopic? YES; Appearance Urine Clear (Clear); Glucose Urine UA Negative (Negative); Leukocyte Esterase Ur Negative LEU/UL (Negative); Nitrate Urine Negative (Negative); Non Pathogenic Casts 0-2; Specific Grav Ur 1.028 (1.001-1.035)
[2024-11-28 18:43] LABS: Alanine Aminotransferase 18 U/L (6-50); Albumin Level 4.0 g/dL (3.5-5.1); Alkaline Phosphatase 62 U/L (38-126); Anion Gap 8 mmol/L (4-12); Aspartate Amino Transferase 31 U/L (17-59); Bilirubin,Total 1.1 mg/dL (0.2-1.3); Blood Urea Nitrogen 17 mg/dL (9-20); Calcium 8.8 mg/dL (8.4-10.2); Carbon Dioxide 25 mmol/L (22-30); Chloride 95 mmol/L (98-107); Estimated CRCL calculation 81 ml/min; Estimated Glomerular Filt Rate > 60; Glucose 115 mg/dL (65-110); Potassium 3.7 mmol/L (3.4-5.0); Sodium 128 mmol/L (137-145); Total Protein 7.3 g/dL (6.3-8.2)
[2024-11-28 18:49] LABS: Lymphocytes Absolute Manual 0.93 K/mm3 (1.1-4.5); Lymphocytes Percent Manual 7.0 % (18-44); Monocytes Absolute Manual 0.67 K/mm3 (0.1-0.90); Monocytes Percent Manual 5 % (3-9); Neutrophils Percent Manual 88 % (46-73); Schistocytes None Seen; Total Cells Counted 100
--- NOTE | 2024-11-28 19:05 | ED_ITS ---
HPI - Headache General Chief Complaint: Weakness Stated Complaint: BAHENA, confusion, unsteady gait x 3 days Time Seen by Provider: 11/28/24 17:30 History of Present Illness HPI Narrative: Pt played pickleball earlier today and had to stop because he didn't feel well. Pt says he felt unsteady on his feet and was afraid he was going to fall. Pt complains of a frontal BAHENA that has persisted. Pt had a fever of 101 earlier and says he slept a bunch of the day. [facility]. Pt admits to thinking he was dehydrated and drinking a bunch of water. Related Data Home Medications ?Medication ?Instructions ?Recorded ?Confirmed ?Last Taken ?Type omega 5-dhi-wsl-fish oil 60 mg-90 1 cap PO DAILY 02/20/24 02/20/24 Unknown History mg-500 mg capsule (Fish Oil) Allergies Allergy/AdvReac Type Severity Reaction Status Date / Time No Known Allergies Allergy Verified 11/28/24 12:50 Review of Systems 2 Review of Systems: All systems reviewed & are unremarkable except as noted in HPI and below PMFSH Surgical History Surgical History History of shoulder surgery Social History Social History Smoking status: Never smoker Alcohol intake: current Substance use: never Do You Feel Safe in your Home?: Yes Lack of Transportation: No Lack of Food: Never True Current Housing: I Have Housing Concerned About Future Housing: No Difficulty Paying Gas/Electric Bills: No Difficulty Paying for Meds: No Currently Unemployed: No Exam 2 Const: General: healthy appearing and no acute distress Nutritional Appearance: well nourished Orientation/consciousness: patient oriented x3 Limitations: no limitations HENMT: Head: normal to inspection Mouth: Yes Normal oral and palatal mucosa present Throat: posterior oropharynx normal Eyes: Conjunctivae: conjunctivae normal Pupils: Equal, round and reactive pupils present EOM: EOMs intact bilaterally Chest: Chest palpation & inspection: normal inspection of the chest Resp: Effort & Inspection: normal respiratory effort Auscultation: clear to auscultation bilaterally Cardio: Rate: regular rate Rhythm: regular rhythm GI: GI Palp: Yes Soft to palpation and No Tenderness to palpation present (GI) Auscultation: normal bowel sounds Back/Spine/Pelvis: Back: no CVA tenderness Skin: General skin exam: normal color Rashes: no rashes Wounds: no wounds Neuro: General: patient oriented x3, moves all extremities, no focal motor deficits and CN's II-XI intact bilaterally Cranial nerves: Yes Nystagmus not present Speech: normal speech Other: finger nose normal on left and searches a little on right. Extrem: General: normal to inspection and no clubbing, cyanosis or edema Psych: Mental Status: mental status grossly normal Affect: normal affect Attitude: cooperative Course Vital Signs Vital signs: Vital Signs Temperature 101.4 F H 11/28/24 12:58 Pulse Rate 83 11/28/24 12:58 Respiratory Rate 16 11/28/24 12:58 Blood Pressure 142/82 H 11/28/24 12:58 Pulse Oximetry 95 11/28/24 12:58 Temperature 101.4 F H 11/28/24 12:58 Pulse Rate 79 11/28/24 19:30 Respiratory Rate 20 11/28/24 19:30 Blood Pressure 172/94 H 11/28/24 19:30 Pulse Oximetry 97 11/28/24 19:30 MDM - Headache MDM Narrative Medical decision making narrative: Pt presents with fever and unsteady gait. pt covid neg and flu neg at EC. will give some fluids and check labs and get cta head and neck to rule out posterior circulation stroke. cta neg. got pt up and walked him and was steady. Pt did not want to be admitted for sodium. instructed to decrease water intake and increase salt intake and get rechecked. tylenol and motrin for fever. return if condition worsens. Lab Data 11/28/24 18:02 11/28/24 18:02 Labs: Lab Results 11/28/24 Range/Units 18:02 WBC 13.4 H (4.5-10.0) K/mm3 RBC 4.77 (4.6-6.20) M/mm3 Hgb 14.9 (14.0-18.0) g/dL Hct 42.9 (42.0-52.0) % MCV 89.9 (80-100) fl MCH 31.2 (26-34) pg MCHC 34.7 (32-36) g/dl RDW 12.3 (11.5-14.5) % Plt Count 199 (150-375) k/mm3 MPV 10.2 (7.4-10.4) fl Immature Gran % (Auto) Not Reportable Neut % (Auto) Not Reportable Lymph % (Auto) Not Reportable [place] % (Auto) Not Reportable Eos % (Auto) Not Reportable Baso % (Auto) Not Reportable Lymph # (Auto) Not Reportable [place] # (Auto) Not Reportable Eos # (Auto) Not Reportable Baso # (Auto) Not Reportable Abs Immat Gran (auto) Not Reportable Absolute Neuts (auto) Not Reportable Absolute Nucleated RBC Not Reportable Total Counted 100 Neutrophils % (Manual) 88 H (46-73) % Band Neutrophils % 0 (0-6) % Lymphocytes % (Manual) 7.0 L (18-44) % Monocytes % (Manual) 5 (3-9) % Nucleated RBC % Not Reportable Abs Neuts (Manual) 11.79 H (1.3-6.7) K/mm3 Abs Lymphs (Manual) 0.93 L (1.1-4.5) K/mm3 Abs Monocytes (Manual) 0.67 (0.1-0.90) K/mm3 Platelet Estimate Adequate (Adequate) Large Platelets Present Schistocytes None seen Sodium 128 L (137-145) mmol/L Potassium 3.7 (3.4-5.0) mmol/L Chloride 95 L (98-107) mmol/L Carbon Dioxide 25 (22-30) mmol/L Anion Gap 8 (4-12) mmol/L BUN 17 (9-20) mg/dL Creatinine 0.79 (0.7-1.3) mg/dL Estim Creat Clear Calc 81 ml/min Estimated GFR > 60 (59 - ) Glucose 115 H (65-110) mg/dL Calcium 8.8 (8.4-10.2) mg/dL Total Bilirubin 1.1 (0.2-1.3) mg/dL AST 31 (17-59) U/L ALT 18 (6-50) U/L Alkaline Phosphatase 62 (38-126) U/L Total Protein 7.3 (6.3-8.2) g/dL Albumin 4.0 (3.5-5.1) g/dL Urine Color Yellow (Yellow) Urine Appearance Clear (Clear) Urine pH 5.5 (5.0-9.0) Ur Specific Velpen 1.028 (1.001-1.035) Urine Protein 1+ H (Negative) mg/dL Urine Glucose (UA) Negative (Negative) mg/dL Urine Ketones 3+ H (Negative) mg/dL Ur Blood (Man) Negative (Negative) Urine Nitrate Negative (Negative) Urine Bilirubin Negative (Negative) Urine Urobilinogen 1.0 (<2.0) mg/dL Leukocyte Esterase Rfl Negative (Negative) ADRIANA/UL Urine RBC 0-2 (0-2) /hpf Urine WBC 0-5 (0-3) /hpf Ur Squamous Epith Cells None seen (Few) /hpf Urine Bacteria None seen /hpf Urine Casts 0-2 Discharge Plan Discharge Clinical Impression: Viral infection, Acute hyponatremia Patient Disposition: Home Condition: Improved Instructions: Antibiotic Form, Hyponatremia (ED), Viral Syndrome (ED) Patient Language: Upper Sorbian Prescriptions: No Action omega 0-crc-dfm-fish oil [Fish Oil] 60-90-500 mg capsule 1 cap PO DAILY Follow-up/Referrals: Anselmo,MD Kim [Primary Care Provider] -
[2024-11-28 19:08] LABS: Band Neutrophils Percent 0 % (0-6); Neutrophils Absolute Manual 11.79 K/mm3 (1.3-6.7)
== END 2024-11-28 22:08 | disposition home or self-care (01) ==
PROVIDERS: Emergency Provider Emergency Medicine; PCP Internal Medicine
DX: B34.9 Viral infection, unspecified (principal); E87.1 Hypo-osmolality and hyponatremia; R94.31 Abnormal electrocardiogram [ECG] [EKG]
CPT/HCPCS: 36415; 70496; 70498; 71045; 80053; 81001; 85025; 93005; 96360; 99284; J7030; Q9967

== ENCOUNTER 2025-01-09 09:45 | Outpatient (CLI) | payer MEDICARE, SELFPAY ==
--- NOTE | ~2025-01-09 | MR_ITS ---
EXAMINATION: MR brain/brain stem wo con DATE: 01/09/2025 10:28 INDICATION: Acute nonintractable headache for over one month and weakness TECHNIQUE: Magnetic resonance imaging (MRI) of the brain and brainstem was performed without intravenous contrast. Sequences included sagittal and axial T1-weighted SE, axial diffusion-weighted FS SE, axial 3D SWAN, axial T2-weighted FLAIR, and axial T2-weighted FSE. Apparent diffusion coefficient (ADC) maps were created. COMPARISON: None. FINDINGS: There are no areas of restricted diffusion to suggest acute infarction. No intracranial hemorrhage or abnormal intracranial mass lesion. There are scattered areas of nonspecific increased T2-weighted signal intensity in the cerebral white matter, predominantly involving the deep and periventricular whi te matter. There are no intraparenchymal signal abnormalities seen on the other pulse sequences. The ventricles are symmetric and normal in size. There are no abnormal extra-axial fluid collections. Flow voids are seen in the cerebral arteries on the T2-weighted sequences consistent with their expected patency. Mild mucosal thickening the bilateral maxillary and ethmoid sinuses. Changes of bilateral intraocular lens replacement. Visualized orbits and soft tissues are unremarkable. IMPRESSION: 1. No acute intracranial process. 2. Mild scattered mesenteric white matter T2 hyperintensity which is within normal limits for age and likely sequela of chronic small vessel ischemic disease. Reviewed, dictated and finalized at location A. IMPRESSION: 1. No acute intracranial process. 2. Mild scattered mesenteric white matter T2 hyperintensity which is within nor mal limits for age and likely sequela of chronic small vessel ischemic disease.
== END 2025-01-09 09:46 | disposition home or self-care (01) ==
LOC: GOSHIMG 09:45
PROVIDERS: PCP Internal Medicine; Visit Provider Internal Medicine
DX: R51.9 Headache, unspecified (principal); R90.82 White matter disease, unspecified
CPT/HCPCS: 70551